=== PATIENT | male | born 1975 | race African-American/Black ===

== ENCOUNTER 2018-06-22 08:06 | Inpatient (IN) ==
[2018-06-22] MEDS ORDERED: MAGNESIUM SULF RIDER 2 GM in PREMIX 1 EACH IV STA (08:30)
[2018-06-22] MEDS ORDERED: methylPREDNISolone SOD SUC 125 MG/2 ML VIAL IV STA (08:30)
[2018-06-22] MEDS ORDERED: ALBUTEROL 2.5 MG/3 ML NEB RESP TX SCH (08:30)
[2018-06-22 09:32] LABS: Basophils # 0.1 10*3/uL (0.0-0.2); Basophils % 0.4 % (0.0-0.8); Eosinophils # 0.5 10*3/uL (0.0-0.87); Eosinophils % 4.2 % (0.00-10.9); Hematocrit 36.4 VOL% (42.0-52.0); Hemoglobin 12.2 GM/DL (14.0-18.0); Immature Granulocytes % 0.7 %; Immature Granulocytes Absolute 0.09 #; Lymphocytes # 3.3 10*3/uL (1.4-4.0); Lymphocytes % 26.7 % (21.2-54.2); Mean Corpuscular HGB Conc 33.5 GM/DL (32-36); Mean Corpuscular Hemoglobin 24 PG (27-34); Mean Corpuscular Volume 72.7 FL (87-102); Mean Platelet Volume 9.8 FL (9.6-12.0); Monocytes # 1.1 10*3/uL (0.11-0.8); Monocytes % 8.6 % (1.7-12.7); Neutrophils # 7.3 10*3/uL (1.4-7.4); Neutrophils % 59.4 % (38.7-73.9); Platelet Count 229 T/CUMM (130-400); Red Blood Count 5.01 MC/CUMM (3.8-5.5); Red Cell Distribution Width 16.2 % (9.3-17.3); White Blood Count 12.3 T/CUMM (4-12)
[2018-06-22 10:03] LABS: Albumin 3.8 G/DL (3.4-5.0); Bilirubin,Total 0.4 MG/DL (0.2-1.0); Calcium 8.7 MG/DL (8.5-10.1); Osmolality,Calculated 276.5 MOS/KG (273-304); Potassium 4.2 MMOL/L (3.5-5.1)
[2018-06-22 10:37] LABS: Apearance,Urine CLEAR (Clear); Bilirubin,Urine Negative (Negative); Blood, Urine Negative (Negative); Glucose,Urine (UA) Negative (Negative); Ketones,Urine Negative (Negative); Mucus,Urine Occasional /LPF (Occasional); Nitrite,Urine Negative (Negative); Protein,Urine Negative; RBC,Urine 2 /HPF (0-4); Squamous Epithelial Cell,Urine Occasional /HPF (0-10); Urine Color Yellow (Yellow); Urine Specific Gravity 1.013 (1.001-1.035); Urine Urobilinogen < 2.0 EU/DL (0.2-1.0); WBC,Urine <1 /HPF (0-6)
[2018-06-22 10:44] LABS: Barbiturates Screen,Urine Negative (Negative); Benzodiazepines Screen,Urine Negative (Negative); Cannabinoid Screen,Urine Negative (Negative); Opiate Screen,Urine Negative (Negative); Phencyclidine Screen,Urine Negative (Negative)
[2018-06-22] MEDS ORDERED: ACETAMINOPHEN 325 MG TABLET PO PRN (14:18)
[2018-06-22] MEDS ORDERED: ALBUTEROL 2.5 MG/3 ML NEB RESP TX PRN ×2 (14:21→14:24)
[2018-06-22] MEDS ORDERED: IBUPROFEN 800 MG TABLET PO SCH (15:00)
[2018-06-22] MEDS: GABAPENTIN 300 MG CAPSULE PO SCH ×2 (15:21→22:01)
[2018-06-22] MEDS: methylPREDNISolone SOD SUC 125 MG/2 ML VIAL IV SCH (15:21)
[2018-06-22] MEDS ORDERED: ALBUTEROL/IPRATROPIUM 3 ML NEB RESP TX PRN (17:29)
[2018-06-22] MEDS: ALBUTEROL/IPRATROPIUM 3 ML NEB RESP TX SCH ×2 (19:46→23:37)
[2018-06-22] MEDS: BENZTROPINE 1 MG TABLET PO SCH (22:01)
[2018-06-22] MEDS: CLOTRIMAZOLE 1% CREAM 15 GM TUBE TOP SCH (22:03)
[2018-06-23] MEDS: methylPREDNISolone SOD SUC 125 MG/2 ML VIAL IV SCH ×3 (02:22→21:01)
[2018-06-23] MEDS: ALBUTEROL/IPRATROPIUM 3 ML NEB RESP TX SCH ×6 (03:48→22:42)
[2018-06-23 03:56] LABS: Basophils % 0.1 % (0.0-0.8); Eosinophils % 0.1 % (0.00-10.9); Hematocrit 34.4 VOL% (42.0-52.0); Hemoglobin 11.5 GM/DL (14.0-18.0); Immature Granulocytes % 1.1 %; Immature Granulocytes Absolute 0.16 #; Lymphocytes # 1.5 10*3/uL (1.4-4.0); Lymphocytes % 9.9 % (21.2-54.2); Mean Corpuscular HGB Conc 33.4 GM/DL (32-36); Mean Corpuscular Hemoglobin 24 PG (27-34); Mean Corpuscular Volume 71.5 FL (87-102); Monocytes % 6.8 % (1.7-12.7); Neutrophils # 12.4 10*3/uL (1.4-7.4); Platelet Count 252 T/CUMM (130-400); Red Blood Count 4.81 MC/CUMM (3.8-5.5); Red Cell Distribution Width 16.1 % (9.3-17.3); White Blood Count 15.1 T/CUMM (4-12)
[2018-06-23 04:28] LABS: Calcium 8.7 MG/DL (8.5-10.1); Osmolality,Calculated 277.7 MOS/KG (273-304); Potassium 4.4 MMOL/L (3.5-5.1); Risk Ratio 3.05
[2018-06-23] MEDS: risperiDONE 1 MG TABLET PO SCH (09:15)
[2018-06-23] MEDS: PANTOPRAZOLE 40 MG TABLET PO SCH (09:15)
[2018-06-23] MEDS: BENZTROPINE 1 MG TABLET PO SCH ×2 (09:15→21:00)
[2018-06-23] MEDS: CITALOPRAM 40 MG TABLET PO SCH (09:15)
[2018-06-23] MEDS: GABAPENTIN 300 MG CAPSULE PO SCH ×3 (09:16→21:00)
[2018-06-23] MEDS: amLODIPine 10 MG TABLET PO SCH (09:16)
[2018-06-23] MEDS: CLOTRIMAZOLE 1% CREAM 15 GM TUBE TOP SCH ×2 (09:22→21:00)
[2018-06-23] MEDS: ONDANSETRON 4 MG/2 ML VIAL IV PRN (11:00)
[2018-06-23] MEDS: KETOROLAC 30 MG/1 ML VIAL IV PRN ×2 (11:52→21:03)
[2018-06-23] MEDS: hydrALAZINE 20 MG/1 ML VIAL IV PRN (12:21)
[2018-06-23] MEDS: PROMETHAZINE 25 MG TABLET PO PRN (17:22)
[2018-06-24] MEDS: PROMETHAZINE 25 MG TABLET PO PRN (02:15)
[2018-06-24] MEDS: ALBUTEROL/IPRATROPIUM 3 ML NEB RESP TX SCH ×3 (02:31→19:20)
[2018-06-24] MEDS: KETOROLAC 30 MG/1 ML VIAL IV PRN ×4 (03:35→21:25)
[2018-06-24 05:32] LABS: Basophils % 0.1 % (0.0-0.8); Hematocrit 35.4 VOL% (42.0-52.0); Hemoglobin 11.8 GM/DL (14.0-18.0); Immature Granulocytes Absolute 0.29 #; Lymphocytes # 1.1 10*3/uL (1.4-4.0); Lymphocytes % 7.9 % (21.2-54.2); Mean Corpuscular HGB Conc 33.3 GM/DL (32-36); Mean Corpuscular Hemoglobin 24 PG (27-34); Mean Corpuscular Volume 72.4 FL (87-102); Mean Platelet Volume 10.4 FL (9.6-12.0); Monocytes # 0.6 10*3/uL (0.11-0.8); Monocytes % 4.5 % (1.7-12.7); Neutrophils # 12.2 10*3/uL (1.4-7.4); Neutrophils % 85.5 % (38.7-73.9); Platelet Count 239 T/CUMM (130-400); Red Blood Count 4.89 MC/CUMM (3.8-5.5); Red Cell Distribution Width 16.2 % (9.3-17.3); White Blood Count 14.2 T/CUMM (4-12)
[2018-06-24 05:50] LABS: Calcium 8.3 MG/DL (8.5-10.1); Osmolality,Calculated 282.7 MOS/KG (273-304); Potassium 4.6 MMOL/L (3.5-5.1)
[2018-06-24] MEDS ORDERED: ALBUTEROL/IPRATROPIUM 3 ML NEB RESP TX PRN ×2 (08:09→15:18)
[2018-06-24] MEDS: BENZTROPINE 1 MG TABLET PO SCH ×2 (09:19→21:22)
[2018-06-24] MEDS: risperiDONE 1 MG TABLET PO SCH (09:19)
[2018-06-24] MEDS: GABAPENTIN 300 MG CAPSULE PO SCH ×3 (09:19→21:22)
[2018-06-24] MEDS: amLODIPine 10 MG TABLET PO SCH (09:19)
[2018-06-24] MEDS: PANTOPRAZOLE 40 MG TABLET PO SCH (09:19)
[2018-06-24] MEDS: hydrALAZINE 20 MG/1 ML VIAL IV PRN (09:20)
[2018-06-24] MEDS: CLOTRIMAZOLE 1% CREAM 15 GM TUBE TOP SCH ×2 (09:20→21:32)
[2018-06-24] MEDS: BUDESONIDE/FORMOTEROL 80-4.5 INHALER 6.9 GM INH SCH ×2 (09:20→21:31)
[2018-06-24] MEDS: CITALOPRAM 40 MG TABLET PO SCH (09:20)
[2018-06-24] MEDS: methylPREDNISolone SOD SUC 125 MG/2 ML VIAL IV SCH ×2 (09:22→21:28)
[2018-06-24] MEDS: ONDANSETRON 4 MG/2 ML VIAL IV PRN ×3 (09:32→21:23)
[2018-06-24] MEDS: cefTRIAXone 1,000 MG in SYRINGE 1 EACH IV SCH (15:38)
[2018-06-24] MEDS: THEOPHYLLINE ER 300 MG TABLET PO SCH (17:17)
[2018-06-24] MEDS: MONTELUKAST 10 MG TABLET PO SCH (21:22)
[2018-06-24] MEDS: ALBUTEROL 2 MG TABLET PO SCH (22:33)
[2018-06-25] MEDS: ALBUTEROL/IPRATROPIUM 3 ML NEB RESP TX SCH ×4 (00:20→19:20)
[2018-06-25] MEDS: ONDANSETRON 4 MG/2 ML VIAL IV PRN ×4 (03:33→22:02)
[2018-06-25] MEDS: KETOROLAC 30 MG/1 ML VIAL IV PRN ×4 (03:35→22:04)
[2018-06-25] MEDS: hydrALAZINE 20 MG/1 ML VIAL IV PRN (04:27)
[2018-06-25 06:08] LABS: Basophils % 0.1 % (0.0-0.8); Hemoglobin 12.3 GM/DL (14.0-18.0); Immature Granulocytes % 2.4 %; Immature Granulocytes Absolute 0.34 #; Lymphocytes # 1.3 10*3/uL (1.4-4.0); Lymphocytes % 8.9 % (21.2-54.2); Mean Corpuscular HGB Conc 34.2 GM/DL (32-36); Mean Corpuscular Hemoglobin 25 PG (27-34); Mean Corpuscular Volume 71.6 FL (87-102); Mean Platelet Volume 10.1 FL (9.6-12.0); Monocytes # 0.8 10*3/uL (0.11-0.8); Monocytes % 5.6 % (1.7-12.7); Neutrophils # 11.9 10*3/uL (1.4-7.4); Platelet Count 231 T/CUMM (130-400); Red Blood Count 5.03 MC/CUMM (3.8-5.5); Red Cell Distribution Width 16.2 % (9.3-17.3); White Blood Count 14.3 T/CUMM (4-12)
[2018-06-25] MEDS: ALBUTEROL 2 MG TABLET PO SCH ×3 (06:19→22:01)
[2018-06-25 06:37] LABS: Albumin 3.6 G/DL (3.4-5.0); Bilirubin,Total 0.5 MG/DL (0.2-1.0); Calcium 8.7 MG/DL (8.5-10.1); Osmolality,Calculated 279.8 MOS/KG (273-304); Potassium 4.4 MMOL/L (3.5-5.1); Total Protein 7.3 G/DL (6.4-8.3)
[2018-06-25 06:39] LABS: % Iron Saturation 6.8 % (18-50)
[2018-06-25] MEDS: BENZTROPINE 1 MG TABLET PO SCH ×2 (09:06→22:01)
[2018-06-25] MEDS: CITALOPRAM 40 MG TABLET PO SCH (09:06)
[2018-06-25] MEDS: PANTOPRAZOLE 40 MG TABLET PO SCH (09:06)
[2018-06-25] MEDS: CLOTRIMAZOLE 1% CREAM 15 GM TUBE TOP SCH ×2 (09:06→22:07)
[2018-06-25] MEDS: MONTELUKAST 10 MG TABLET PO SCH ×2 (09:06→22:02)
[2018-06-25] MEDS: THEOPHYLLINE ER 300 MG TABLET PO SCH ×2 (09:06→17:27)
[2018-06-25] MEDS: GABAPENTIN 300 MG CAPSULE PO SCH ×3 (09:06→22:02)
[2018-06-25] MEDS: risperiDONE 1 MG TABLET PO SCH (09:06)
[2018-06-25] MEDS: amLODIPine 10 MG TABLET PO SCH (09:06)
[2018-06-25] MEDS: BUDESONIDE/FORMOTEROL 80-4.5 INHALER 6.9 GM INH SCH ×2 (09:06→22:06)
[2018-06-25] MEDS: methylPREDNISolone SOD SUC 125 MG/2 ML VIAL IV SCH ×2 (09:07→22:06)
[2018-06-25] MEDS: LOSARTAN 50 MG TABLET PO SCH (10:27)
[2018-06-25] MEDS: HEPARIN 5,000 UNIT/1 ML VIAL SUBCUT SCH ×2 (10:27→17:27)
[2018-06-25] MEDS: cefTRIAXone 1,000 MG in SYRINGE 1 EACH IV SCH (15:29)
[2018-06-26] MEDS: ALBUTEROL/IPRATROPIUM 3 ML NEB RESP TX SCH ×4 (00:53→19:30)
[2018-06-26] MEDS: HEPARIN 5,000 UNIT/1 ML VIAL SUBCUT SCH ×3 (03:45→17:51)
[2018-06-26] MEDS: ONDANSETRON 4 MG/2 ML VIAL IV PRN ×4 (04:32→23:08)
[2018-06-26] MEDS: KETOROLAC 30 MG/1 ML VIAL IV PRN ×4 (04:34→23:10)
[2018-06-26] MEDS: hydrALAZINE 20 MG/1 ML VIAL IV PRN (05:21)
[2018-06-26] MEDS: ALBUTEROL 2 MG TABLET PO SCH ×3 (05:50→21:34)
[2018-06-26] MEDS ORDERED: DEXTROSE 50% 25 GM/50 ML VIAL IV PRN (07:20)
[2018-06-26] MEDS ORDERED: GLUCAGON 1 MG VIAL IM PRN (07:20)
[2018-06-26] MEDS: INSULIN REGULAR 100 UNIT/ML SUBCUT SCH ×4 (08:45→21:37)
[2018-06-26] MEDS: GABAPENTIN 300 MG CAPSULE PO SCH ×3 (10:21→23:08)
[2018-06-26] MEDS: MONTELUKAST 10 MG TABLET PO SCH ×2 (10:21→21:34)
[2018-06-26] MEDS: amLODIPine 10 MG TABLET PO SCH (10:21)
[2018-06-26] MEDS: PANTOPRAZOLE 40 MG TABLET PO SCH (10:21)
[2018-06-26] MEDS: THEOPHYLLINE ER 300 MG TABLET PO SCH ×2 (10:21→16:14)
[2018-06-26] MEDS: BENZTROPINE 1 MG TABLET PO SCH ×2 (10:22→21:34)
[2018-06-26] MEDS: methylPREDNISolone SOD SUC 125 MG/2 ML VIAL IV SCH ×2 (10:22→21:33)
[2018-06-26] MEDS: risperiDONE 1 MG TABLET PO SCH (10:22)
[2018-06-26] MEDS: LOSARTAN 50 MG TABLET PO SCH (10:22)
[2018-06-26] MEDS: CITALOPRAM 40 MG TABLET PO SCH (10:22)
[2018-06-26] MEDS: BUDESONIDE/FORMOTEROL 80-4.5 INHALER 6.9 GM INH SCH ×2 (10:25→21:38)
[2018-06-26] MEDS: CLOTRIMAZOLE 1% CREAM 15 GM TUBE TOP SCH ×2 (10:25→21:39)
[2018-06-26] MEDS: cefTRIAXone 1,000 MG in SYRINGE 1 EACH IV SCH (16:14)
[2018-06-27] MEDS: ALBUTEROL/IPRATROPIUM 3 ML NEB RESP TX SCH ×2 (00:52→07:05)
[2018-06-27] MEDS: HEPARIN 5,000 UNIT/1 ML VIAL SUBCUT SCH ×2 (03:44→11:21)
[2018-06-27] MEDS: ALBUTEROL 2 MG TABLET PO SCH (05:27)
[2018-06-27] MEDS: ONDANSETRON 4 MG/2 ML VIAL IV PRN (05:27)
[2018-06-27] MEDS: KETOROLAC 30 MG/1 ML VIAL IV PRN (05:29)
[2018-06-27 08:05] VITALS: BP 171/92
[2018-06-27] MEDS ORDERED: hydroCHLOROthiazide 25 MG TABLET PO SCH (09:00)
[2018-06-27] MEDS: THEOPHYLLINE ER 300 MG TABLET PO SCH (11:15)
[2018-06-27] MEDS: INSULIN REGULAR 100 UNIT/ML SUBCUT SCH (11:15)
[2018-06-27] MEDS: BENZTROPINE 1 MG TABLET PO SCH (11:18)
[2018-06-27] MEDS: CITALOPRAM 40 MG TABLET PO SCH (11:18)
[2018-06-27] MEDS: amLODIPine 10 MG TABLET PO SCH (11:19)
[2018-06-27] MEDS: CLOTRIMAZOLE 1% CREAM 15 GM TUBE TOP SCH (11:19)
[2018-06-27] MEDS: GABAPENTIN 300 MG CAPSULE PO SCH (11:19)
[2018-06-27] MEDS: PANTOPRAZOLE 40 MG TABLET PO SCH (11:20)
[2018-06-27] MEDS: MONTELUKAST 10 MG TABLET PO SCH (11:20)
[2018-06-27] MEDS: risperiDONE 1 MG TABLET PO SCH (11:20)
[2018-06-27] MEDS: methylPREDNISolone SOD SUC 125 MG/2 ML VIAL IV SCH (11:20)
[2018-06-27] MEDS: BUDESONIDE/FORMOTEROL 80-4.5 INHALER 6.9 GM INH SCH (11:21)
== END 2018-06-27 12:17 | disposition home or self-care (01) ==
LOC: EDBD → N.ED 08:06 → SUATTDRO 12:22 → N.EDINP 12:22 → N.2E 14:56
PROVIDERS: ADMIT Internal Medicine